=== PATIENT | male | born 1940 | race Caucasian/White ===

== ENCOUNTER 2017-08-07 03:15 | Emergency (ER) | payer MEDICARE, SELFPAY ==
[2017-08-07 03:16] VITALS: BP 157/76; PULSE 72; RESP 16; TEMP 36.4; O2SAT 97; BMI 30.4
--- NOTE | 2017-08-07 03:35 | ED.VISSUMM ---
- ER Visit Summary Date of Service: 08/07/17 Chief Complaint: Toe pain History of Present Illness: The patient is a 77 M who accidentally dropped a 10 pound plastic cutting board on his right great toe with his shoe on about 3 hours prior to arrival. No other injury. Painful to walk, but he has been able. No bleeding. He takes medicine for blood pressure but no anticoagulants or aspirin. Physical Examination: Well-appearing in no distress. Tenderness at the distal phalanx of the right great toe. No deformities. There is some ecchymosis at the tip of the toe, peroneal aspect but no subungual hematoma. All of his toenails are thickened and have some degree of separation from the bed, consistent with chronic onychomycosis. Test Results: X-ray right foot on my interpretation shows a nondisplaced tuft fx of the great toe distal phalanx, on my interpretation; radiology has not read the film yet. Emergency Department Course and Treatment: He declines analgesics. Placed in a postop shoe to use as needed. He has no PCP, he was referred to 1. Supportive care advised. Treatment Plan: As above. He has no PCP; referred to the next doctor on the no-doc list. Disposition: Discharge home Impression: Nondisplaced closed right great toe distal phalanx fracture This note was generated with [employer] dictation software. It may contain incorrect words, spelling, and punctuation that were not noted in review of the chart prior to signing ED Disposition - Plan for ED Patient: Disposition: Home or Assisted Living Chief Complaint: Lower Extremity Injury Instructions: ED Fx Toe Closed Referrals: Mayank Cullen DO [NON CLINICAL AFFILIATE] -
--- NOTE | 2017-08-07 03:45 | RAD_ITS ---
STUDY: X-RAY - RIGHT FOOT CLINICAL: Male, 77 years old. Dropped heavy object on great toe TECHNIQUE: 3 view(s) of the foot. COMPARISON: None. FINDINGS: Normal talus, calcaneus, and tarsal bones. Normal visualized subtalar, talonavicular, calcaneocuboid, tarsal and tarsometatarsal articulations. Normal metatarsi. Normal metatarsophalangeal joint of the great toe. Normal tibial and fibular sesamoid bones. Normal interphalangeal joint of the great toe. Normal phalanges of the great toe. Normal second through fifth metatarsophalangeal joints. Normal interphalangeal joints and phalanges of the lesser toes. The soft tissue structures are unremarkable. RAD/Foot min 3 Views IMPRESSION: No acute osseous injury is evident. Electronically Signed: Isidro Portillo MD at 5:19 EDT Tel , Service support ,
[2017-08-07 05:36] VITALS: BP 148/68; PULSE 79; RESP 16; O2SAT 98
== END 2017-08-07 05:36 | disposition home or self-care (01) ==
PROVIDERS: Emergency Provider Emergency Medicine
DX: S92.424A Nondisplaced fracture of distal phalanx of right great toe, initial encounter for closed fracture (principal); W22.8XXA Striking against or struck by other objects, initial encounter; Y93.9 Activity, unspecified; Y92.9 Unspecified place or not applicable; I10 Essential (primary) hypertension; Z79.82 Long term (current) use of aspirin
CPT/HCPCS: 73630; 99283

== ENCOUNTER 2017-08-08 22:26 | Emergency (ER) | payer MEDICARE, SELFPAY ==
[2017-08-08 22:27] VITALS: BP 124/68; PULSE 77; RESP 18; TEMP 36.6; O2SAT 98; BMI 27.3
--- NOTE | 2017-08-08 23:19 | ED.DCSUM_ITS ---
- ER Visit Summary Date of Service: 08/08/17 Chief Complaint: [] Injury to right toe with bleeding History of Present Illness: The patient is a 77 M seen yesterday in the emergency department diagnosed with a distal phalanx fracture of his right great toe. He accidentally dropped something on it. He noticed some bleeding from the base of the nail today and wanted to make sure it was not infected. Current severity is mild. Physical Examination: Vital signs reviewed General: Well-nourished well-developed Head: Normocephalic atraumatic Eyes: Pupils equal round and reactive to light extraocular movements intact ENT: TMs clear no hemotympanum no trauma Neck: Nontender full range of motion Cardiovascular: Regular rate rhythm no murmurs normal S1-S2 Respiratory: No distress clear to auscultation bilaterally chest nontender Abdomen: Soft nontender nondistended normal bowel sounds no masses Back: Nontender no CVA tenderness Extremities: Right great toe has some mild bruising. Mild tenderness. He said this has not changed since the injury. The base of his right great toe he has some mild bleeding under the cuticle. The toe is loose. It will likely fall off on its own. He does need to be removed. Skin: Normal color no trauma Neuro alert oriented cranial nerves II through XII intact normal strength sensation reflexes Test Results: [] Emergency Department Course and Treatment: [] Reassured no evidence of infection. He mainly came in because of that. The bleeding is very mild. We will continue to keep it bandaged. Will follow-up as an outpatient. Does not need antibiotics. This is not an open fracture. Treatment Plan: [] Disposition: [] Impression: [] Wound check great toe This note was generated with [employer] dictation software. It may contain incorrect words, spelling, and punctuation that were not noted in review of the chart prior to signing ED Disposition - Plan for ED Patient: Chief Complaint: Lower Extremity Injury Referrals: Care Physician,No Primary [Primary Care Provider] -
--- NOTE | 2017-08-08 23:19 | ED.DEP ---
ED Disposition - Plan for ED Patient: Disposition: Home or Assisted Living Chief Complaint: Lower Extremity Injury Instructions: ED Fx Toe Closed Referrals: Care Physician,No Primary [Primary Care Provider] - Mayank Cullen DO [NON CLINICAL AFFILIATE] -
[2017-08-08 23:34] VITALS: BP 122/74; PULSE 71; RESP 18; O2SAT 98
== END 2017-08-08 23:36 | disposition home or self-care (01) ==
PROVIDERS: Emergency Provider Emergency Medicine
DX: S92.424A Nondisplaced fracture of distal phalanx of right great toe, initial encounter for closed fracture (principal); W22.8XXA Striking against or struck by other objects, initial encounter; Y93.9 Activity, unspecified; Y92.9 Unspecified place or not applicable; I10 Essential (primary) hypertension; Z79.82 Long term (current) use of aspirin
CPT/HCPCS: 99282

== ENCOUNTER 2019-01-01 17:05 | Emergency (ER) | payer MEDICARE, SELFPAY ==
[2019-01-01 17:08] VITALS: BP 131/75; PULSE 57; RESP 17; TEMP 36.9; O2SAT 97; BMI 25.9
--- NOTE | 2019-01-01 17:31 | CT_ITS ---
STUDY: CT BRAIN WITHOUT CONTRAST REASON FOR EXAM: Male, 78 years old. RADIATION DOSAGE (If Supplied By Facility): CTDIvol = ( 44.99 ) mGy, DLP = ( 829.85 ) mGycm TECHNIQUE: Transaxial CT imaging of the brain was performed without administration of intravenous contrast material. Individualized dose optimization techniques were used for this CT. COMPARISON: No relevant priors. FINDINGS: Prominent frontal scalp soft tissue swelling. Normal calvarium. There is mild cerebral atrophy with widening of the extra-axial spaces and ventricular dilatation. There are areas of decreased attenuation within the white matter tracts of the supratentorial brain, consistent with microvascular disease changes. Normal basal ganglia and thalami. Normal brainstem. There is mild cerebellar atrophy. There is no intracranial hemorrhage. There are no findings of an acute ischemic infarction. Normal visualized paranasal sinuses. CT/Brain/Head without Contrast IMPRESSION: Chronic involutional changes of the brain. No acute intracranial process. Prominent frontal scalp soft tissue swelling. Electronically Signed: Car Ureña MD at 17:58 EDT Tel [phone], Service support ,
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
[2019-01-01 18:16] VITALS: BP 144/74; PULSE 58; RESP 20; O2SAT 99
== END 2019-01-01 18:22 | disposition home or self-care (01) ==
LOC: ED 17:57
PROVIDERS: Emergency Provider Emergency Medicine; Family Provider Internal Medicine; PCP Internal Medicine
DX: S50.812A Abrasion of left forearm, initial encounter (principal); S60.222A Contusion of left hand, initial encounter; V49.88XA Car occupant (driver) (passenger) injured in other specified transport accidents, initial encounter; Y93.89 Activity, other specified; Y92.410 Unspecified street and highway as the place of occurrence of the external cause
CPT/HCPCS: 70450; 99284

== ENCOUNTER 2019-01-03 19:27 | Emergency (ER) | payer MEDICARE, SELFPAY ==
[2019-01-03 19:29] VITALS: BP 142/63; PULSE 70; RESP 18; TEMP 36.3; O2SAT 98; BMI 25.8
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
--- NOTE | 2019-01-03 20:41 | ED.DEP ---
ED Disposition - Plan for ED Patient: Disposition: Home or Assisted Living Instructions: FACIAL CONTUSION, No Wakeup Referrals: Dean Rojas MD [Primary Care Provider] - As Needed Additional Instructions: Ice to your face. The bruising will eventually resolve but may take 1 to 2 weeks or even longer.
[2019-01-03 20:55] VITALS: RESP 16
== END 2019-01-03 20:55 | disposition home or self-care (01) ==
PROVIDERS: Emergency Provider Emergency Medicine; Family Provider Internal Medicine; PCP Internal Medicine
DX: S00.83XA Contusion of other part of head, initial encounter (principal); S00.12XA Contusion of left eyelid and periocular area, initial encounter; S00.11XA Contusion of right eyelid and periocular area, initial encounter; V49.88XA Car occupant (driver) (passenger) injured in other specified transport accidents, initial encounter; W22.10XA Striking against or struck by unspecified automobile airbag, initial encounter; Y93.89 Activity, other specified; Y92.9 Unspecified place or not applicable; I10 Essential (primary) hypertension; Z79.82 Long term (current) use of aspirin; Z79.899 Other long term (current) drug therapy
CPT/HCPCS: 70486; 99282

== ENCOUNTER → 2019-05-28 14:06 | Outpatient (CLI) | payer MEDICARE, SELFPAY ==
[2019-05-03 13:37] VITALS: BMI 25.3
--- NOTE | 2019-05-28 14:06 | ECHOD_ITS ---
Reason For Study: Murmur Procedure This was a 2D Doppler, Color Flow transthoracic echocardiogram. The exam was of adequate technical quality. Exam performed in department. Left Ventricle Normal LV size. Mild concentric left ventricular hypertrophy. Left ventricular systolic function is normal. The estimated ejection fraction is 65 %. No evidence for diastolic dysfunction. No regional wall motion abnormalities noted. Right Ventricle Normal RV size. Normal systolic function. Atria The left atrium is mildly enlarged. The right atrium is mildly enlarged. No doppler evidence for ASD. Mitral Valve There is moderate mitral annular calcification. Extension of the mitral annular calcification onto the base of the posterior mitral valve leaflet. Mild (1+) mitral valve insufficiency. Tricuspid Valve Normal tricuspid valve. Mild tricuspid valve insufficiency. Right ventricular systolic pressure estimated to be 28 mmHg. Aortic Valve Trisinus/trileaflet aortic valve. Mild diffuse aortic valve thickening. Mild focal aortic valve calcification. Aortic sclerosis, no stenosis. Mild (1+) aortic valve insufficiency. Pulmonic Valve The pulmonic valve is not well visualized. Great Vessels Normal sized aortic root. Pericardium/Pleural No pericardial effusion. MMode/2D Measurements & Calculations LVIDd: 4.1 cm IVSd: 1.5 cm LVOT diam: 2.0 cm LVIDs: 2.6 cm LVPWd: 1.3 cm LVOT area: 3.2 cm2 FS: 36.3 % Ao root diam: 3.6 cm LAV(MOD-bp): 59.3 ml LA A4 area: 21.4 cm2 LA dimension: 3.5 cm LAV(MOD-bp) Indexed: 31.5 ml/m2 LAV(MOD-sp2): 54.5 ml LAV(MOD-sp4): 61.5 ml RA A4 area: 21.4 cm2 Time Measurements MV dec time: 0.24 sec Doppler Measurements & Calculations MV E max pablito: 73.3 cm/sec Lat Peak E' Pablito: 12.3 cm/sec Med Peak E' Pablito: 6.6 cm/sec MV A max pablito: 73.6 cm/sec E/E' lat: 5.9 E/E' med: 11.0 MV E/A: 1.00 MV V2 max: 89.9 cm/sec Ao V2 max: 149.7 cm/sec AI max pablito: 364.4 cm/sec MV max P.2 mmHg Ao max P.1 mmHg AI max P.3 mmHg MV V2 mean: 54.0 cm/sec ALY(V,D): 3.1 cm2 AI dec slope: 157.4 cm/sec2 MV mean P.4 mmHg AI P1/2t: 678.1 msec MV V2 VTI: 24.0 cm LV V1 max: 144.9 cm/sec PA V2 max: 118.5 cm/sec TR max pablito: 248.9 cm/sec LV V1 max P.5 mmHg TR max P.8 mmHg Interpretation Summary Left ventricular systolic function is normal. The estimated ejection fraction is 65 %. Mild concentric left ventricular hypertrophy. The left atrium is mildly enlarged. The right atrium is mildly enlarged. There is moderate mitral annular calcification. Extension of the mitral annular calcification onto the base of the posterior mitral valve leaflet. Mild (1+) mitral valve insufficiency. Mild tricuspid valve insufficiency. Aortic sclerosis, no stenosis. Mild (1+) aortic valve insufficiency. Right ventricular systolic pressure estimated to be 28 mmHg. No evidence for diastolic dysfunction. Ordering Physician: Juan Hdz Referring Physician: Juan Hdz Performed By: Juanito Espinoza RCS
== END ==
PROVIDERS: Family Provider Internal Medicine; PCP Internal Medicine; Referring Provider Internal Medicine Cardiovascular Disease; Visit Provider Internal Medicine Cardiovascular Disease
DX: I25.10 Atherosclerotic heart disease of native coronary artery without angina pectoris (principal); I35.8 Other nonrheumatic aortic valve disorders; I35.1 Nonrheumatic aortic (valve) insufficiency
CPT/HCPCS: 93306

== ENCOUNTER → 2020-04-01 | Outpatient (CLI) | payer MEDICARE, SELFPAY ==
[2019-11-19 15:23] VITALS: BMI 25.2
--- NOTE | 2020-03-31 09:28 | COLBX_PTH ---
PATIENT: DL DIANE LOC: [facility] U#:[id number] AGE/SX: 80/M ROOM: RE04/01/[address]: Dr. Matthieu Lai MD : [id number] BED: DIS: 04/01/2020 SPEC #: [id number] RECD: 03/31/20 16:54 STATUS: AYAH RETong #: [id number] BRENDA: 03/31/20 09:[address]: Matthieu Lai DEPT: SURGICAL PATHOLOGY RECD BY: Sana Ramirez ENTERED: 04/01/20 07:34 SP TYPE: COLON BX OTHR DR: Dr. Anuradha Chavez DO Tissues: Colon, NOS Procedures: Surgery Specimen Level IV HEADER OPERATION: Colonoscopy PRE-OP DIAGNOSIS: Screening; polyp removal TISSUE SUBMITTED: Ascending colon polyp MICROSCOPIC DIAGNOSIS Ascending colon polyp, biopsy: Tubular adenoma. AM:olimpia 04/02/20 MICROSCOPIC DESCRIPTION Slides are reviewed. GROSS DESCRIPTION Received in fixative is one container labeled with the patient's name and designated ascending colon polyp. The specimen consists of a fragment of martinez soft tissue measuring 0.3 x 0.3 x 0.1 cm. The specimen is totally submitted in one cassette. / SJ:olimpia 04/01/20 TC:5 CPT: 74087
== END | disposition home or self-care (01) ==
LOC: LABSPEC 06:59
PROVIDERS: PCP Internal Medicine; Referring Provider Internal Medicine Gastroenterology; Visit Provider Internal Medicine Gastroenterology
DX: Z12.11 Encounter for screening for malignant neoplasm of colon (principal); D12.2 Benign neoplasm of ascending colon
CPT/HCPCS: 88305

== ENCOUNTER → 2022-07-19 | Outpatient (CLI) | payer MEDICARE, SELFPAY ==
--- NOTE | 2022-07-19 16:57 | RAD_ITS ---
EXAM: XR LEFT FOOT, 2 VIEWS CLINICAL INDICATION: PAIN IN BOTH FEET TECHNIQUE: Frontal and lateral views of the left foot. This report was created using [employer] report generation technology. 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 Prominent plantar calcaneal enthesophyte. No sclerotic or destructive changes observed. No other evidence for acute or healing fracture or malalignment. SOFT TISSUES: Unremarkable. No soft tissue swelling or gas. No radiopaque foreign body. 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 Electronically Signed: Gerson Flowers MD at 4:26 EST ,
--- NOTE | 2022-07-19 17:00 | RAD_ITS ---
EXAM: XR RIGHT FOOT, 2 VIEWS CLINICAL INDICATION: PAIN IN BOTH FEET TECHNIQUE: Frontal and lateral views of the right foot. This report was created using [employer] report generation technology. COMPARISON: None. FINDINGS: BONES/JOINTS: Moderate to severe degenerative changes at the first metatarsophalangeal joint without hallux valgus deformity. Type II accessory navicular. No acute fracture. No subluxation. Normal alignment. Preservation of the joint space. No sclerotic or destructive changes observed. Prominent plantar calcaneal spur. SOFT TISSUES: Unremarkable. No soft tissue swelling or gas. No radiopaque foreign body. RAD/Foot 2 Views IMPRESSION: Moderate to severe degenerative changes at the first metatarsophalangeal joint without hallux valgus deformity. Electronically Signed: Gerson Flowers MD at 4:24 EST ,
== END | disposition home or self-care (01) ==
LOC: RAD 16:54
PROVIDERS: PCP Internal Medicine; Visit Provider Internal Medicine
DX: M79.671 Pain in right foot (principal); M79.672 Pain in left foot
CPT/HCPCS: 73620

== ENCOUNTER 2023-09-28 16:23 | Emergency (ER) | payer MEDICARE, SELFPAY ==
[2023-09-28 16:25] VITALS: BP 126/55; PULSE 61; RESP 22; TEMP 36.5; O2SAT 100; BMI 26.4
--- NOTE | 2023-09-28 16:35 | EKG12_ITS ---
Test Reason : SOB Blood Pressure : / mmHG Vent. Rate : 063 BPM Atrial Rate : 000 BPM P-R Int : 000 ms QRS Dur : 082 ms QT Int : 398 ms P-R-T Axes : 000 -16 058 degrees QTc Int : 407 ms Normal sinus rhythm with PAC's and Sinus Arrhythmia Inferior infarct , age undetermined Abnormal ECG Confirmed by Sebastien Tipton ([id number]), video editor LAUREN YOUNG ([id number]) on 10/03/2023 9:43:21 AM Referred By: Confirmed By:Sebastien Tipton
--- NOTE | 2023-09-28 16:50 | EX.ED.DYSGE1 ---
HPI History of Present Illness Chief Complaint: Shortness of Breath Detail of Chief Complaint: Generalized fatigue Informant: patient Onset/Context/Timing Onset: Weeks Context: Gradual Onset Timing: Continuous Current Severity: Mild Maximum Severity: Mild Narrative Narrative: 83-year-old male history of CAD with a stent for the last month he has had increasing fatigue. He denies any weight loss. He denies any nausea vomiting or diarrhea. Said he just cannot seem to get his energy back. Saw his primary care physician today. He had outpatient labs on Tuesday which showed a new anemia with a hemoglobin of 11. 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 Prior similar symptoms: No Recent Illness/Hospitalization: No [facility] Medical History (Updated 09/28/23 @ 19:[address] Ron Olivera MD) Nonrheumatic aortic (valve) insufficiency Nonrheumatic aortic sclerosis SVT (supraventricular tachycardia) Mixed hyperlipidemia Essential hypertension Presence of stent in coronary artery (~2008) Atherosclerotic heart disease of [place] coronary artery without angina pectoris Home Medications ?Medication ?Instructions ?Recorded ?Last Taken ?Type aspirin 81 mg tablet,delayed 81 mg PO DAILY #30 tabs 05/03/19 Unknown Rx release nitroglycerin 0.4 mg sublingual 0.4 mg sublingual Q5-15M PRN chest 05/03/19 Unknown Rx tablet pain #25 tabs losartan 50 mg tablet 50 mg PO DAILY #90 tabs 05/08/19 Unknown Rx simvastatin 40 mg tablet 40 mg PO QHS #90 tabs 06/25/22 Unknown Rx metoprolol tartrate 25 mg tablet See Rx Instructions .Route 01/03/23 Unknown Rx .COMPLEX #30 tabs levothyroxine 50 mcg tablet 50 mcg PO DAILY 09/28/23 Unknown History Allergy/AdvReac Type Severity Reaction Status Date / Time No Known Allergies Allergy Verified 09/28/23 16:24 Family History Mother Hypertension Father Hypertension Brother Hypertension Surgical History History of left heart catheterization (LHC) (~06/28/16) Presence of coronary angioplasty implant and graft (~2008) Social History Smoking Status: Never smoker alcohol intake: never substance use type: does not use caffeine: No ROS ROS ED ROS Narrative Fatigue. Review of Systems ROS Unobtainable: Denies due to encephalopathy Constitutional Constitutional ED: Denies chills or fever(s) Eyes Eyes: Denies blurry vision ENT ENT ED: Denies ear pain Cardiovascular Cardiovascular: Denies chest pain Respiratory/Chest Respiratory/Chest: Denies cough or dyspnea Gastrointestinal Gastrointestinal: Denies abdominal pain Genitourinary Genitourinary ED: Denies dysuria Musculoskeletal Musculoskeletal: Denies arthralgias Integumentary Denies abscess Neurologic Neurologic: Denies headache(s) Psychiatric Psychiatric: Denies anxiety or depression Endocrine Endocrinology: Denies cold intolerance Hematologic/Lymphatic Hematologic/Lymphatic: Reports easy bleeding and easy bruising Allergic/Immunologic Allergic/Immunologic ED: Denies mouth swelling, tongue swelling or urticaria EXAM Physical Exam Narrative Exam Narrative: 19-year-old male vital signs stable afebrile. Pulse ox 9% on room air no hypoxia. H EENT exam unremarkable moist extremities. Neck nontender. Lungs clear to auscultation bilateral. Heart regular rhythm 4-6 systolic ejection murmur. Abdomen soft nontender. Normal bowel sounds. Moving all 4 extremities. Where he had his recent blood work done on his left antecubital area is extensive bruising. Normal nurse assessor strength. Normal dorsi plantarflexion. No edema. Neurologically is awake and alert no focal motor deficits. Const Vital Signs: 09/28/23 16:25 09/28/23 16:35 09/28/23 18:24 Temperature 97.7 F L Temperature Source Temporal Pulse Rate 61 Respiratory Rate 22 H Respiratory Effort Normal Non-Labored Short of Breath Blood Pressure 126/55 H Blood Pressure Mean 78 Pulse Ox 100 Oxygen Delivery Method Room Air Room Air 09/28/23 18:24 Temperature Temperature Source Pulse Rate 57 L Respiratory Rate 28 H Respiratory Effort Blood Pressure 142/65 H Blood Pressure Mean 90 Pulse Ox 95 Oxygen Delivery Method Room Air Positive well nourished and well developed; Negative for obese, cachectic, contractures or unkempt General Appearance ED: well developed and NAD; Negative for unkempt, cachectic, contractures, cyanotic, diaphoretic or pallor Nutritional Appearance: Negative for cachectic or obese HEENT Reports moist mucous membranes; Denies dry mucous membranes Negative for trauma or tenderness Mouth ED: No dry mucous membranes Mouth: No dry mucous membranes Eyes PERRL and EOMs intact bilaterally General Eye ED: Negative for pale conjunctiva, scleral icterus or other Neck no lymphadenopathy, supple and no JVD General: Negative for tenderness Lymph Lymphatic: Negative for other Chest Wall inspection of chest normal and palpation of chest normal Chest: Negative for other Resp normal respiratory effort and clear to auscultation bilaterally Effort and Inspection: Negative for retractions Auscultation: Negative for rales, rhonchi, wheezes or diminished lung sounds Cardio regular rate, regular rhythm, S1 normal heart sound and S2 normal heart sound; Negative for no murmurs Palpation: Negative for palpable S3 Rate: other Other Details: 4-6 systolic ejection murmur. ; Negative for bradycardia GI normal to inspection, nondistended, normoactive bowel sounds, non-tender, non-distended and no masses Inspection: Negative for abdominal distention Auscultation: normoactive bowel sounds Palpation: soft; Negative for tender or guarding Back/Spine no CVA tenderness General Back: Negative for CVA tenderness Cervical Spine: Negative for cervical spine tenderness Thoracic Spine / Upper Back: Negative for thoracic spinal tenderness Lumbar Spine / Lower Back: Negative for lumbar spinal tenderness Extremity normal to inspection Extremity Narrative: Bruising left antecubital forearm. Recent blood draw. General Extremety ED: Negative for edema or tenderness General Extremity: Negative for edema Neuro oriented x3 and CN's II-XII intact bilaterally Sensorium / Orientation: alert; Negative for orientation impaired, lethargic or stuporous Motor Exam: strength 5/5 throughout; Negative for general weakness or strength abnormal Psych mental status grossly normal Appearance: Negative for unkempt Attitude: No agitated Mood & Affect: Negative for depressed, anxious or tearful Skin no rashes or lesions noted and no wounds General Skin Exam: Negative for jaundice or pallor Lesions: No lesion noted Rashes: No rashes noted Trauma: Negative for abrasion MDM MDM MDM Narrative Medical decision making narrative: 83-year-old male month-long history of fatigue. 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 Screening labs will be obtained. I have already spoken to [facility] transfer line at [facility] where the patient would like to be treated if possible. They are seeing if they have a bed. Currently the patient is stable. Normal vital signs. Repeat exam patient doing well at 7:40 PM. 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 And that was his hospital of choice. History & Record Review Discussion w/independent historian: Patient Lab Data Attestation: I reviewed the patient's lab results. Lab results narrative: CBC shows a white count 8.2. H&H 9.4 and 20.7. This is a new anemia. Platelet count of 19,000 this is also new. Blast like cells. Will need pathology review. PT/INR of 18 and 1. PTT at 35. Electrolytes show sodium 135. Gap 7. BUN of 29 creatinine 1.28. Liver enzymes negative. Labs: Laboratory Results - last 24 hr 09/28/23 09/28/23 16:50 16:55 WBC 8.2 RBC 2.95 L Hgb 9.4 L Hct 28.7 L MCV 97.3 H MCH 31.9 MCHC 32.8 RDW Std Deviation 61.1 H RDW Coeff of Mayi 17.5 H Plt Count 19 L* MPV 11.8 Immature Gran % (Auto) 0.100 Neut % (Auto) 3.0 L Lymph % (Auto) 35.8 Hubbard % (Auto) 60.0 H Eos % (Auto) 0.4 Baso % (Auto) 0.7 Absolute Neuts (auto) 0.2 L Absolute Lymphs (auto) 2.95 Nucleated RBC % 0.4 Differential Comment SCANNED Diff Path Review May foll PT 18.4 H INR 1.5 APTT 35.3 Sodium 135 L Potassium 4.7 Chloride 103 Carbon Dioxide 25.0 Anion Gap 7 BUN 29 H Creatinine 1.28 Estim Creat Clear Calc 41.60 Est GFR (MDRD) Af Amer 69 Est GFR (MDRD) Non-Af 57 L BUN/Creatinine Ratio 22.7 H Glucose 96 Calcium 9.6 Total Bilirubin 0.70 AST 52 H ALT 23 Alkaline Phosphatase 75 Total Protein 6.6 Albumin 3.0 L Globulin 3.6 Albumin/Globulin Ratio 0.8 L Radiography Chest X-Ray - ED: 1 View, Read by ED Physician, Read by Radiologist, Normal, Heart, Lungs, Mediastinum, Bony Structures, No Acute Disease and Chronic Changes Diagnostic Testing: Clinical Impression(s) from Imaging Studies Chest X-Ray 09/28/23 16:55 IMPRESSION: No radiographic evidence of acute cardiopulmonary disease. Aortic atherosclerosis. Electronically Signed: Charlie Christianson MD at 17:07 EDT , Chest x-ray, portable, single view interpreted by myself the radiologist shows no acute abnormality. Chronic changes. Normal cardiac silhouette. No infiltrate. No effusions Rhythm Strip Rhythm Strip: Sinus Rhythm Rate: 63 Ectopy: None EKG Initial EKG: Attestation: I personally reviewed and interpreted this EKG as follows: Interpretation: Sinus Rhythm and No Acute Injury Pattern Comments: Normal sinus rhythm rate of 63 no acute signs of OH or ischemia. Discharge Plan Triage Chief Complaint: Shortness of Breath ED Provider: Ron Olivera Dx/Rx/DC Orders Clinical Impression: Fatigue, Acute anemia, Thrombocytopenia, Acute myelogenous leukemia, History of coronary artery disease Prescriptions: No Action nitroglycerin 0.4 mg tablet, sublingual 0.4 mg SUBLINGUAL Q5-15M PRN (Reason: chest pain) Qty: 25 1RF aspirin 81 mg tablet,delayed release (DR/EC) 81 mg PO DAILY Qty: 30 0RF levothyroxine 50 mcg tablet 50 mcg PO DAILY losartan 50 mg tablet 50 mg PO DAILY Qty: 90 3RF simvastatin 40 mg tablet 40 mg PO QHS Qty: 90 3RF metoprolol tartrate 25 mg tablet See Rx Instructions .ROUTE .COMPLEX Qty: 30 0RF Dose Instruction: Take 1/2 (one-half) tablet by mouth twice daily Rx Instructions: Take 1/2 (one-half) tablet by mouth twice daily Primary Care Provider: Anuradha Chaevz Referrals: Anuradha Chavez DO [Primary Care Provider] - Print Language: Uzbek Disposition Disposition: Acute Care Hospital
--- NOTE | 2023-09-28 16:55 | RAD_ITS ---
INDICATION: chest pain EXAMINATION/TECHNIQUE: X-RAY - XR Chest 1 View COMPARISON: None. FINDINGS: LINES/DEVICES: None. LUNGS: No consolidation, edema or effusion. No pneumothorax. MEDIASTINUM AND CARDIOVASCULAR STRUCTURES: Cardiac silhouette not enlarged. Aortic atherosclerosis. BONES AND SOFT TISSUES: Unremarkable. RAD/Chest 1 View (Portable) IMPRESSION: No radiographic evidence of acute cardiopulmonary disease. Aortic atherosclerosis. Electronically Signed: Charlie Christianson MD at 17:07 EDT ,
[2023-09-28 17:04] LABS: Absolute Lymphocyte Count 2.95 X10^3/uL (0.83-4.51); Absolute Neutrophil Count 0.2 X10^3/uL (2.0-7.7); Basophil# 0.06 X10^3/uL; Basophil% 0.7 % (0-1); Eosinophil# 0.03 X10^3/uL; Eosinophils% 0.4 % (0-5); Hematocrit 28.7 % (40-54); Hemoglobin 9.4 g/dL (13.0-16.5); Lymphocyte # 2.95 X10^3/ul (0.83-4.51); Lymphocyte % 35.8 % (19-41); Mean Corp Hgb Conc 32.8 g/dL (32-36); Mean Corpuscular Hgb 31.9 pg (27.0-32.0); Mean Corpuscular Volume 97.3 fL (80-94); Mean Platelet Vol. 11.8 fl (6.2-12.0); Monocyte# 4.94 X10^3/uL; NRBC Flagged by Analyzer 0.4 % (0-5); Neutrophil # 0.24 X10^3/uL (2.7-7.7); POSITIVE COUNT YES; POSITIVE DIFFERENTIAL YES; POSITIVE MORPHOLOGY YES; RBC Distribution Width CV 17.5 % (11.6-14.6); RBC Distribution Width SD 61.1 fl (35.1-43.9); Red Blood Count 2.95 M/mm3 (4.6-6.2); White Blood Count 8.2 K/mm3 (4.4-11.0)
[2023-09-28 17:27] LABS: International Normalized Ratio 1.5; Prothrombin Time (Protime)PT. 18.4 SECONDS (11.7-14.9)
[2023-09-28 17:29] LABS: Partial Thromboplast Time 35.3 Seconds (24.1-36.2)
[2023-09-28 17:38] LABS: ALB/GLOB Ratio 0.8 RATIO (0.9-2.4); AST(SGOT) 52 U/L (15-37); Alanine Aminotransfer ALT/SGPT 23 U/L (16-61); Alkaline Phosphatase 75 U/L (45-117); Anion Gap 7 (5-15); BUN 29 mg/dL (7-18); BUN/Creat Ratio 22.7 RATIO (10-20); Calcium,Total 9.6 mg/dL (8.5-10.1); Chloride 103 mmol/L (98-107); Creatinine, Serum 1.28 mg/dL (0.70-1.30); EST Glomerular Filtration Rate 57 mL/min (>60); Est Glom Filt Rate - Afr Amer 69 mL/min (>60); Globulin 3.6 g/dL (2.2-4.2); Glucose 96 mg/dL (74-106); Potassium 4.7 mmol/L (3.5-5.1); Protein, Total 6.6 g/dL (6.4-8.2); Sodium Level 135 mmol/L (136-145)
[2023-09-28 17:46] LABS: Differential Indicated SCAN CRITERIA MET
[2023-09-28 17:47] LABS: Platelet Count 19 K/mm3 (150-450)
[2023-09-28 17:53] LABS: Differential Comment SCANNED
[2023-09-28 18:24] VITALS: BP 142/65; PULSE 57; RESP 28; O2SAT 95
[2023-09-28 20:20] VITALS: BP 142/65; PULSE 57; RESP 28; TEMP 36.5; O2SAT 95
[2023-09-30 14:38] LABS: Pathologist Review Reviewed
== END 2023-09-28 20:49 | disposition short-term general hospital (02) ==
PROVIDERS: Emergency Provider Emergency Medicine; PCP Internal Medicine; Visit Provider Emergency Medicine
DX: C92.00 Acute myeloblastic leukemia, not having achieved remission (principal); D69.6 Thrombocytopenia, unspecified; I25.10 Atherosclerotic heart disease of native coronary artery without angina pectoris; I10 Essential (primary) hypertension; E78.2 Mixed hyperlipidemia; Z95.5 Presence of coronary angioplasty implant and graft; Z79.82 Long term (current) use of aspirin; Z79.899 Other long term (current) drug therapy
CPT/HCPCS: 71045; 80053; 85025; 85610; 85730; 93005; 99285

== ENCOUNTER 2023-10-14 09:15 | Outpatient (CLI) | payer MEDICARE, SELFPAY ==
[2023-10-14 09:45] VITALS: BP 121/52; PULSE 70; RESP 16; TEMP 36.4; O2SAT 97; BMI 26.9
[2023-10-14] MEDS: 0.9% Normal Saline (500mL Bag) 500 ML 15 ML IV (09:51)
[2023-10-14] MEDS: 0.9% NaCl VAD Flush IV (09:51)
[2023-10-14 11:06] VITALS: BP 133/50; PULSE 66; RESP 16; TEMP 36.2; O2SAT 98
== END 2023-10-14 23:59 | disposition home or self-care (01) ==
LOC: MEDOUTP 09:17
PROVIDERS: PCP Internal Medicine; Referring Provider Internal Medicine Hematology & Oncology; Visit Provider Internal Medicine Hematology & Oncology
DX: C95.00 Acute leukemia of unspecified cell type not having achieved remission (principal)
CPT/HCPCS: 96360; 36430; 86900; 86901; 86965; J7040; P9035; A4216

== ENCOUNTER 2023-11-04 07:57 | Outpatient (CLI) | payer MEDICARE, SELFPAY ==
[2023-11-04 08:39] VITALS: BP 112/48; PULSE 84; RESP 16; TEMP 37.7; O2SAT 97; BMI 25.8
[2023-11-04] MEDS: 0.9% Normal Saline (500mL Bag) 500 ML 15 ML IV (08:48)
[2023-11-04] MEDS: 0.9% NaCl Peripheral Flush Adult/Peds IV (08:48)
[2023-11-04 09:28] VITALS: BP 128/59; PULSE 63; RESP 16; TEMP 37.2; O2SAT 97
[2023-11-04 09:44] VITALS: BP 139/63; PULSE 97; RESP 16; TEMP 36.6; O2SAT 100
[2023-11-04 10:23] VITALS: BP 142/62; PULSE 89; RESP 16; TEMP 36.8; O2SAT 96
[2023-11-04 11:19] VITALS: BP 140/62; PULSE 73; RESP 16; TEMP 37.2; O2SAT 97
[2023-11-04 12:25] VITALS: BP 162/71; PULSE 85; RESP 16; TEMP 37.4; O2SAT 98
== END 2023-11-04 23:59 | disposition home or self-care (01) ==
LOC: MEDOUTP 07:57
PROVIDERS: PCP Internal Medicine; Referring Provider Internal Medicine Hematology & Oncology; Visit Provider Internal Medicine Hematology & Oncology
DX: C92.00 Acute myeloblastic leukemia, not having achieved remission (principal)
CPT/HCPCS: 36430; 86850; 86900; 86901; 86920; 86922; 86965; J7040; P9016; P9035; A4216

== ENCOUNTER 2023-11-08 09:49 | Outpatient (CLI) | payer MEDICARE, SELFPAY ==
[2023-11-08] MEDS: 0.9% NaCl Peripheral Flush Adult/Peds IV (10:14)
[2023-11-08] MEDS: 0.9% Normal Saline (500mL Bag) 500 ML 15 ML IV (10:14)
[2023-11-08 10:19] VITALS: BP 122/55; PULSE 77; RESP 16; TEMP 36.3; O2SAT 94; BMI 26.6
[2023-11-08 10:48] VITALS: BP 126/51; PULSE 83; RESP 14; TEMP 36.2; O2SAT 94
[2023-11-08 11:06] VITALS: BP 118/64; PULSE 81; RESP 14; TEMP 36.2; O2SAT 94
[2023-11-08 11:22] VITALS: BP 142/61; PULSE 93; RESP 16; TEMP 36.3
[2023-11-08 12:37] VITALS: BP 140/61; PULSE 93; RESP 16; TEMP 36.5
[2023-11-08 14:10] VITALS: BP 153/72; PULSE 84; RESP 16; TEMP 36.6; O2SAT 95
--- NOTE | 2023-11-08 14:15 | NURSING ---
Patient completed 1st unit of PRBC and asked to use the bathroom. Patient transferred via WC but noted to have increased SOB and mild wheezing when done. Assisted patient back to chair in room and noted to have difficulty with catching his breath. Patient states that he does not use oxygen at home but this nurse offered oxygen to help recover patient states that would be good Patient placed on 2L oxygen via NC. Patient is due to start next unit of blood. This nurse spoke with Dr Salcido's nurse and advised of patient's current status. With return call from Dr Salcido's office was advised to take patient to the Er. Patient's IV saline locked and transported to Er via W/c with 2L of oxygen via NC. Report called to Gracy in Er. Steven Munoz
== END 2023-11-08 23:59 | disposition home or self-care (01) ==
LOC: MEDOUTP 09:49
PROVIDERS: PCP Internal Medicine; Referring Provider Internal Medicine Hematology & Oncology; Visit Provider Internal Medicine Hematology & Oncology
DX: C95.00 Acute leukemia of unspecified cell type not having achieved remission (principal)
CPT/HCPCS: 96360; 96361; 36430; 86644; 86850; 86900; 86901; 86920; 86922; 86965; J7040; P9035; P9040; A4216

== ENCOUNTER 2023-11-08 14:01 | Inpatient (IN) | payer MEDICARE, SELFPAY ==
[2023-11-08] VITALS (15 sets, daily range): BP systolic 117–171; BP diastolic 51–92; PULSE 81–90; RESP 16–26; TEMP 36.1–37.5; O2SAT 95–100; BMI 28.3
--- NOTE | 2023-11-08 15:20 | EKG12_ITS ---
Test Reason : SOB Blood Pressure : / mmHG Vent. Rate : 092 BPM Atrial Rate : 000 BPM P-R Int : 000 ms QRS Dur : 078 ms QT Int : 348 ms P-R-T Axes : 000 -08 053 degrees QTc Int : 430 ms Atrial fibrillation with premature ventricular or aberrantly conducted complexes Septal infarct , age undetermined Abnormal ECG Confirmed by Sebastien Tipton ([id number]), news assignment editor MARTINEZ VÁZQUEZ ([id number]) on 11/09/2023 9:20:53 AM Referred By: Confirmed By:Sebastien Tipton
--- NOTE | 2023-11-08 15:30 | RAD_ITS ---
STUDY: X-RAY CHEST REASON FOR EXAM: Male, 83 years old. Dyspnea, hypoxia TECHNIQUE: PA and lateral COMPARISON: September 28, 2023 FINDINGS: Lungs are hyperinflated however there is diffuse bilateral perihilar interstitial infiltrate or pulmonary edema with bilateral pleural effusions larger on the left and left lower lobe consolidation Heart is enlarged. Normal mediastinum and leticia. Normal visualized pulmonary arteries. Mildly calcified aortic arch and descending thoracic aorta. Dorsal spine demonstrates mild degenerative change. Normal visualized ribs, clavicles, and shoulders. There is no demonstrated abnormality of the visualized soft tissue structures of the upper abdomen. RAD/Chest PA and Lateral IMPRESSION: COPD with probable superimposed congestive failure and bilateral effusions with consolidation of left lower lobe. Cannot definitively exclude coexisting pneumonia. Electronically Signed: Rubio Jeronimo MD at 16:50 EDT ,
[2023-11-08 16:05] LABS: ALB/GLOB Ratio 0.6 RATIO (0.9-2.4); AST(SGOT) 34 U/L (15-37); Alanine Aminotransfer ALT/SGPT 15 U/L (16-61); Albumin, Serum 1.9 g/dL (3.2-5.0); Alkaline Phosphatase 90 U/L (45-117); Anion Gap 5 (5-15); BNP,B-Type NATRIURETIC PEPTIDE 685.3 pg/mL (0-100); BUN 21 mg/dL (7-18); BUN/Creat Ratio 23.3 RATIO (10-20); Chloride 102 mmol/L (98-107); EST Glomerular Filtration Rate 86 mL/min (>60); Est Glom Filt Rate - Afr Amer 103 mL/min (>60); Globulin 3.4 g/dL (2.2-4.2); Glucose 123 mg/dL (74-106); Potassium 3.4 mmol/L (3.5-5.1); Protein, Total 5.3 g/dL (6.4-8.2); Sodium Level 134 mmol/L (136-145); Troponin-I HS 22 pg/mL (3.0-78.0)
[2023-11-08 16:05] LABS: Hematocrit 22.5 % (40-54); Hemoglobin 7.7 g/dL (13.0-16.5); Mean Corp Hgb Conc 34.2 g/dL (32-36); Mean Corpuscular Volume 87.5 fL (80-94); Mean Platelet Vol. 7.5 fl (6.2-12.0); POSITIVE COUNT YES; POSITIVE DIFFERENTIAL YES; POSITIVE MORPHOLOGY YES; Platelet Count 7 K/mm3 (150-450); RBC Distribution Width CV 13.8 % (11.6-14.6); RBC Distribution Width SD 43.8 fl (35.1-43.9); Red Blood Count 2.57 M/mm3 (4.6-6.2); White Blood Count 0.1 K/mm3 (4.4-11.0)
[2023-11-08 16:08] LABS: Lactic Acid 1.6 mmol/L (0.4-1.9)
--- NOTE | 2023-11-08 16:18 | ED.RN ---
CRITICAL LABS REPORTED TO DR. CHDAWICK
--- NOTE | 2023-11-08 16:43 | ED.VIS.DYS ---
HPI History of Present Illness Chief Complaint: Shortness of Breath Detail of Chief Complaint: Acute shortness of breath during blood transfusion Informant: patient, family and PCP Onset/Context/Timing Onset: Hours Context: sudden Timing: Continuous Quality: Positive for Dyspnea on exertion and Wheezing Current Severity: Mild Maximum Severity: Moderate Worsened by: - (Blood transfusion reaction) Associated Symptoms cough; Negative for rhinorrhea, post nasal drip, ear pain, fever, sore throat, subjective, chills or sweats Chest Pain: Positive for None Narrative Narrative: Patient is a 83-year-old male with history of leukemia. He underwent bone marrow transplant. He was at the infusion center receiving platelets and blood. He developed shortness of breath. He was sent to the emergency department. He normally is able to walk without any difficulty. He has conversational dyspnea. He was hypoxic. He was placed on oxygen. He has never been on oxygen before. He denies fever, chills night sweats. He denies headache, visual, ocular auditory symptoms. Eyes vidal ears decreased hearing. Has trouble with speech or swallowing. He denies chest discomfort. He has a slight cough. He denies orthopnea. He denies abdominal pain, nausea, vomiting or diarrhea. He denies dysuria, frequency, urgency or hematuria. He has not urinated since this occurred and has no symptoms prior. PE Risk Factors: Positive for Cancer and Recent surgery; Negative for OCP + Smoking + > 35, Prior DVT or PE, Recent immobilization or Recent travel Prior similar symptoms: No Recent Illness/Hospitalization: Yes [facility] Medical History (Updated 11/08/23 @ 16:[address] Karan Verde MD) Nonrheumatic aortic (valve) insufficiency Nonrheumatic aortic sclerosis SVT (supraventricular tachycardia) Mixed hyperlipidemia Essential hypertension Presence of stent in coronary artery (~2008) Atherosclerotic heart disease of [place] coronary artery without angina pectoris Home Medications ?Medication ?Instructions ?Recorded ?Last Taken ?Type nitroglycerin 0.4 mg sublingual 0.4 mg sublingual Q5-15M PRN chest 05/03/19 Unknown Rx tablet pain #25 tabs losartan 50 mg tablet 50 mg PO DAILY #90 tabs 05/08/19 Unknown Rx simvastatin 40 mg tablet 40 mg PO QHS #90 tabs 06/25/22 Unknown Rx metoprolol tartrate 25 mg tablet See Rx Instructions .Route 01/03/23 Unknown Rx .COMPLEX #30 tabs levothyroxine 50 mcg tablet 50 mcg PO DAILY 09/28/23 Unknown History acyclovir 400 mg tablet 400 mg PO BID 11/08/23 Unknown History allopurinol 300 mg tablet 300 mg PO DAILY 11/08/23 Unknown History clotrimazole 10 mg pia 10 mg PO 5X/DAY 11/08/23 Unknown History ivosidenib 250 mg tablet (Tibsovo) PO 11/08/23 Unknown History Allergy/AdvReac Type Severity Reaction Status Date / Time No Known Allergies Allergy Verified 11/08/23 14:05 Family History Mother Hypertension Father Hypertension Brother Hypertension Surgical History History of left heart catheterization (LHC) (~06/28/16) Presence of coronary angioplasty implant and graft (~2008) Social History Smoking Status: Former smoker alcohol intake: never substance use type: does not use caffeine: No ROS ROS ED Constitutional Constitutional ED: Denies chills, fever(s) or sweats Eyes Eyes: Denies blurry vision, change in vision or diplopia ENT ENT ED: Denies ear pain, rhinorrhea or sore throat Cardiovascular Cardiovascular: Denies chest pain, orthopnea, palpitations, paroxysmal nocturnal dyspnea or racing heartbeat Respiratory/Chest Respiratory/Chest: Reports cough, dyspnea and dyspnea on exertion; Denies orthopnea, paroxysmal nocturnal dyspnea or sputum Gastrointestinal Gastrointestinal: Denies abdominal pain, melena, nausea or vomiting Genitourinary Genitourinary ED: Denies dysuria, hematuria or urinary frequency Musculoskeletal Musculoskeletal: Denies arthralgias, myalgias or neck pain Integumentary Denies rash Neurologic Neurologic: Reports weakness; Denies headache(s) Psychiatric Psychiatric: Reports anxiety Endocrine Endocrinology: Denies cold intolerance or heat intolerance Hematologic/Lymphatic Hematologic/Lymphatic: Denies easy bleeding or easy bruising EXAM Physical Exam Const Vital Signs: 11/08/23 14:02 11/08/23 14:19 11/08/23 14:22 Temperature 97 F L 97 F L Temperature Source Temporal Temporal Pulse Rate 85 85 Respiratory Rate 17 17 Respiratory Effort Short of Breath Labored Respiratory Pattern Tachypnea Blood Pressure 156/85 H 156/85 H Blood Pressure Mean 108 108 Pulse Ox 100 100 Oxygen Delivery Method Nasal Cannula Nasal Cannula Room Air Oxygen Flow Rate (L/min) 2 2 11/08/23 15:19 11/08/23 16:00 Temperature 98.9 F 98.5 F Temperature Source Temporal Temporal Pulse Rate 87 84 Respiratory Rate 18 26 H Respiratory Effort Respiratory Pattern Blood Pressure 144/70 H 131/78 H Blood Pressure Mean 94 95 Pulse Ox 100 97 Oxygen Delivery Method Nasal Cannula Nasal Cannula Oxygen Flow Rate (L/min) 2 2 Positive well nourished and well developed Constitutional Narrative: Patient has conversational dyspnea. He was hypoxic on room air. General Appearance ED: well developed and pallor HEENT Reports dry mucous membranes HEENT Narrative: Head is atraumatic normocephalic. Ears normal. Nares patent. Posterior pharynx remarkable for thrush. Mouth ED: Yes dry mucous membranes Mouth: dry mucous membranes Eyes PERRL and EOMs intact bilaterally General Eye ED: Yes pale conjunctiva; Negative for scleral icterus Neck no lymphadenopathy, supple, no meningeal signs and no JVD Resp No normal respiratory effort and No clear to auscultation bilaterally Auscultation: rales bilateral mid and lower Cardio regular rate, regular rhythm, S1 normal heart sound, S2 normal heart sound and no murmurs GI non-tender, non-distended and no masses Auscultation: normoactive bowel sounds Palpation: soft Back/Spine no CVA tenderness Extremity normal to inspection Neuro oriented x3 and CN's II-XII intact bilaterally [place] Coma Scale: document GCS findings Spontaneous Obeys Commands Oriented 15 Sensorium / Orientation: alert Psych mental status grossly normal Skin no wounds and No skin turgor normal General Skin Exam: pallor; Negative for jaundice MDM MDM MDM Narrative Medical decision making narrative: Differential diagnosis would include blood transfusion reaction, pulmonary embolus, congestive heart failure. History & Record Review Discussion w/independent historian: Patient and Family Additional record(s) reviewed:: Other (Dr. Renee called over and spoke to the charge nurse.) Lab Data Attestation: I reviewed the patient's lab results. Lab results narrative: Patient has pancytopenia with a white count of 100 with an absolute neutrophil count that is in the single digits. H&H 7.7 and 22.5. Platelet count is 7000. Comprehensive metabolic panel reveals mild hyponatremia and hypokalemia. BUN to creatinine ratio is elevated. BUN is 21 with a creatinine 0.9. BNP is elevated at 685.3. Labs: Laboratory Results - last 24 hr 11/08/23 11/08/23 11/08/23 15:14 15:14 15:54 WBC Cancelled 0.1 L* Corrected WBC Cancelled RBC Cancelled 2.57 L Hgb Cancelled 7.7 L Hct Cancelled 22.5 L MCV Cancelled 87.5 MCH Cancelled 30.0 MCHC Cancelled 34.2 RDW Std Deviation Cancelled 43.8 RDW Coeff of Mayi Cancelled 13.8 Plt Count Cancelled 7 L* MPV Cancelled 7.5 Immature Gran % (Auto) Cancelled 10.000 H Neut % (Auto) Cancelled 10.0 L Lymph % (Auto) Cancelled 70.0 H [place] % (Auto) Cancelled 10.0 Eos % (Auto) Cancelled 0.0 Baso % (Auto) Cancelled 0.0 Absolute Neuts (auto) Cancelled 0.0 L Absolute Lymphs (auto) Cancelled 0.07 L Total Counted Cancelled Neutrophils % (Manual) Cancelled Band Neutrophils % Cancelled Lymphocytes % (Manual) Cancelled Monocytes % (Manual) Cancelled Eosinophils % (Manual) Cancelled Basophils % (Manual) Cancelled Metamyelocytes % Cancelled Myelocytes % Cancelled Promyelocytes % Cancelled Blast Cells % Cancelled Plasma Cell % (Manual) Cancelled Other Cells % Cancelled Nucleated RBC % Cancelled Nucleated RBCs/100 WBC Cancelled Differential Comment Cancelled Diff Path Review Cancelled May foll Hypersegmented Neuts Cancelled Atypical Lymphocytes Cancelled Reactive Lymphocytes Cancelled Smudge Cells Cancelled Toxic Granulation Cancelled Toxic Vacuolation Cancelled Dohle Bodies Cancelled [place] Rods Cancelled Platelet Estimate Cancelled Plt Morphology Comment Cancelled RBC Morphology Cancelled Cancelled Polychromasia Cancelled Hypochromasia Cancelled Basophilic Stippling Cancelled Anisocytosis Cancelled Microcytosis Cancelled Macrocytosis Cancelled Spherocytes Cancelled Sickle Cells Cancelled Target Cells Cancelled Tear Drop Cells Cancelled Ovalocytes Cancelled Stomatocytes Cancelled [place] Bodies Cancelled [place] Cells Cancelled Bite Cells Cancelled Crenated Cell Cancelled Acanthocytes (Spur) Cancelled Rouleaux Cancelled Schistocytes Cancelled Sodium 134 L Potassium 3.4 L Chloride 102 Carbon Dioxide 27.0 Anion Gap 5 BUN 21 H Creatinine 0.90 Est GFR (MDRD) Af Amer 103 Est GFR (MDRD) Non-Af 86 BUN/Creatinine Ratio 23.3 H Glucose 123 H Lactic Acid 1.6 Calcium 8.0 L Total Bilirubin 1.60 H AST 34 ALT 15 L Alkaline Phosphatase 90 Troponin I High Sens 22 B-Natriuretic Peptide 685.3 H Total Protein 5.3 L Albumin 1.9 L Globulin 3.4 Albumin/Globulin Ratio 0.6 L Radiography Diagnostic Testing: Clinical Impression(s) from Imaging Studies Chest X-Ray 11/08/23 15:30 IMPRESSION: COPD with probable superimposed congestive failure and bilateral effusions with consolidation of left lower lobe. Cannot definitively exclude coexisting pneumonia. Electronically Signed: Rubio Jeronimo MD at 16:50 EDT , Management Discussion w/another healthcare provider: Hospitalist and Petroleum Inspector Supervisor (Dr. Micky Santos on-call for Dr. Juan Salcido was made aware patient. At this time does not recommend any antibiotic for prophylaxis for his neutropenia and would not administer any platelets or do anything for his thrombocytopenia at this time.) Discharge Plan Triage Chief Complaint: Shortness of Breath ED Provider: Karan Verde Dx/Rx/DC Orders Clinical Impression: Blood transfusion reaction, Essential hypertension, Mixed hyperlipidemia, Acute hypoxemic respiratory failure, Neutropenia, Symptomatic anemia, Thrombocytopenia, Candidiasis of mouth Prescriptions: No Action nitroglycerin 0.4 mg tablet, sublingual 0.4 mg SUBLINGUAL Q5-15M PRN (Reason: chest pain) Qty: 25 1RF levothyroxine 50 mcg tablet 50 mcg PO DAILY clotrimazole 10 mg pia 10 mg PO 5X/DAY acyclovir 400 mg tablet 400 mg PO BID allopurinol 300 mg tablet 300 mg PO DAILY Tibsovo 250 mg tablet PO losartan 50 mg tablet 50 mg PO DAILY Qty: 90 3RF simvastatin 40 mg tablet 40 mg PO QHS Qty: 90 3RF metoprolol tartrate 25 mg tablet See Rx Instructions .ROUTE .COMPLEX Qty: 30 0RF Dose Instruction: Take 1/2 (one-half) tablet by mouth twice daily Rx Instructions: Take 1/2 (one-half) tablet by mouth twice daily Primary Care Provider: Anuradha Chavez Referrals: Anuradha Chavez DO [Primary Care Provider] - Print Language: Arabic
[2023-11-08 16:50] LABS: Differential Indicated SCAN CRITERIA MET; Neutrophil # 0.01 X10^3/uL (2.7-7.7)
[2023-11-08 16:51] LABS: Absolute Lymphocyte Count 0.07 X10^3/uL (0.83-4.51); Lymphocyte # 0.07 X10^3/ul (0.83-4.51)
--- NOTE | 2023-11-08 18:11 | CASEMGMT ---
Care Management Face to Face in the ED with patient and his sister in law Arabella (who was present during the last part of the visit) for initial transition planning/care coordination assessment.? This senior writer introduced self and role at [facility]. Patient lying in bed, alert and oriented but tired. Much of the time, patient spoke with his eyes closed and stated he was tired but agreeable to visit and support. Patient willing to participate in assessment and is able to answer all questions appropriately.? Care providers, pharmacy, and demographics verified. Admitting Diagnosis: SOB Other diagnosis history: Leukemia, HTN, Mixed hyperlipidemia, History of heart disease. Refer to H&P for further details. PCP: Dr. Anuradha Chavez Specialists: Dr. Salcido (oncology) and Dr. Barton, both through the [facility]: [facility] Insurance: [employer] Prescription Benefit:?Not discussed Living Will/HPOA: Patient not sure however has a family ip technology transactions attorney who will have knowledge if patient has a Living Will or Healthcare Power of [employer]. Patient's sister in law Bell will speak with patient's sons and will try and get a copy if there is anything currently in place. During the visit, the hospitalist came in and asked patient what his end of life preferences are and patient verbalized a preference of a DNR/declined a desire to be intubated as well. LNOK: Sons Tahir Santiago of [place] and Krish Santiago of [place]. [id number] Arabella Juares ([phone]) lives in [place]. Living Arrangements: Patient resides alone and is . Patient reported having two steps to get into his home and 14 stairs to climb up and down to get to his bedroom where he sleeps. He confirmed he has a handrail to hold on to for support. Fall prevention education was reviewed with patient and rn social services inquired about the possibility of being able to sleep on the first floor which patient stated he could do if he wanted to. Transportation: Patient denied any issues with transportation. Patient's [id number] Arabella makes sure patient gets to all of his scheduled appointments as needed. DME/HHC: Grab bars in bathroom. conveyor worker discussed an option of an ERS device/services with a fall detection sensor, a rollator and a medication dispenser device to alert patient when it's time to take his medication as he reported he misses doses because he's sleeping when it's time to take his medication during the day. (Patient declined resources) Patient stated he will try to make up the dose in the evening when he can. Patient denied a need for any additional DME/HHC needs at this time. Patient stated he has a few Andrés ladies who he has to help him clean as needed. Arabella assists with meals as needed. No history of SNF. HHC history not reported. Community Resources: Patient denied a current need. Patient goals: Patient stated he has a desire to receive medical care and is agreeable to the recommendations of his doctor including being discharged to a Longterm Facility if needed as well as to return home if skilled care is not needed. Patient expressed numerous times that he's tired and wants to let his body do what it wants to do. Patient described himself as a realist and is agreeable to hospice if ever appropriate. Patient stated if he is ever on hospice, it is his wish to be in room 3 at [facility] inpatient unit where his . Patient states he has no further needs or concerns at this time. Educated arden and Arabella that CM team to follow for discharge planning needs that may arise. Disposition Plan: To be determined. Arabella Valentino, STORE DETECTIVE, WATERPROOFING MIXER
[2023-11-08] MEDS: Furosemide 20 MG/2 ML VIAL IV ×2 (18:14→21:29)
--- NOTE | 2023-11-08 19:36 | PCM.HP.STD ---
HPI - General General Date of Admission: 11/08/23 Date of Service: 11/08/23 Chief Complaint: Shortness of breath HPI Melody DIANE, is a 83 M who presents to the emergency room at [facility] with complaints of shortness of breath which occurred while he was getting a blood/platelet infusion. Patient is currently on 2 L of oxygen in the emergency room and his saturation is adequate. 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 Patient's performance status is not good and Dr. Salcido states that if he was going to continue to treat him it would be with oral medication. Labs obtained in the emergency room showed a total white blood cell count of 100, hemoglobin was 7.7, platelet count was 7000, chemistry profile was remarkable for sodium of 134, potassium of 3.4 and a BUN of 21. Total bilirubin was 1.6. Chest x-ray was obtained and showed evidence of congestive heart failure, patient's beta nitric peptide was elevated at 685. I discussed the case with Dr. Santos and Dr. Salcido-who routinely sees the patient-initially it was felt that the patient should be transferred to the [facility] according to Dr. Salcido and he requested the patient be given IV diuresis. I was informed by the emergency room physician about an hour after I saw the patient that the [facility] placed the patient on a level 2 priority and that he would not be admitted there till at least 12 hours. This necessitated admission to the hospital here. I talked with Dr. Salcido again and he recommended giving the patient a platelet transfusion and continuing diuresis. I had a brief discussion with the patient, he wishes to be a no code. According to nursing and the ER physician, patient was talking that he would like to consider palliative care or hospice-I did not have a discussion concerning this with the patient however. Patient will be admitted to PCU for acute CHF/fluid overload, he will receive platelet transfusion and labs will be monitored, pulse ox will be monitored and he is currently on low-flow nasal cannula oxygen. He will be given IV Lasix for diuresis. [facility] Medical History (Updated 11/08/23 @ 19:[address] Elliot Lozano, DO) Nonrheumatic aortic (valve) insufficiency Nonrheumatic aortic sclerosis SVT (supraventricular tachycardia) Mixed hyperlipidemia Essential hypertension Presence of stent in coronary artery (~2008) Atherosclerotic heart disease of [place] coronary artery without angina pectoris Home Medications ?Medication ?Instructions ?Recorded ?Last Taken ?Type nitroglycerin 0.4 mg sublingual 0.4 mg sublingual Q5-15M PRN chest 05/03/19 Unknown Rx tablet pain #25 tabs losartan 50 mg tablet 50 mg PO DAILY #90 tabs 05/08/19 Unknown Rx simvastatin 40 mg tablet 40 mg PO QHS #90 tabs 06/25/22 Unknown Rx metoprolol tartrate 25 mg tablet See Rx Instructions .Route 01/03/23 Unknown Rx .COMPLEX #30 tabs levothyroxine 50 mcg tablet 50 mcg PO DAILY 09/28/23 Unknown History acyclovir 400 mg tablet 400 mg PO BID 11/08/23 Unknown History allopurinol 300 mg tablet 300 mg PO DAILY 11/08/23 Unknown History clotrimazole 10 mg pia 10 mg PO 5X/DAY 11/08/23 Unknown History ivosidenib 250 mg tablet (Tibsovo) PO 11/08/23 Unknown History Allergy/AdvReac Type Severity Reaction Status Date / Time No Known Allergies Allergy Verified 11/08/23 14:05 Family History Mother Hypertension Father Hypertension Brother Hypertension Surgical History History of left heart catheterization (LHC) (~06/28/16) Presence of coronary angioplasty implant and graft (~2008) Social History Smoking Status: Former smoker alcohol intake: never substance use type: does not use caffeine: No ROS Constitutional Constitutional: Reports fatigue and weakness; Denies anorexia, change in weight, chills, fever(s) or night sweats Eyes Eyes: Denies blurry vision, change in vision, discharge from eye(s) or eye pain Cardiovascular Cardiovascular: Reports dyspnea on exertion; Denies chest pain, claudication, edema or palpitations Respiratory/Chest Respiratory/Chest: Reports dyspnea, shortness of breath at rest and shortness of breath with exertion; Denies cough or hemoptysis Gastrointestinal Gastrointestinal: Denies abdominal pain, constipation, diarrhea, hematemesis, hematochezia, melena, nausea or vomiting Genitourinary Genitourinary: Denies dysuria, hematuria, urinary frequency, urinary hesitancy, urinary incontinence or urinary urgency Musculoskeletal Musculoskeletal: Denies back pain, joint pain, joint stiffness, joint swelling, myalgias or neck pain Neurologic Neurologic: Denies abnormal gait, abnormal speech, dizziness, focal weakness, headache(s), loss of vision, numbness, other visual disturbances, paresthesias, syncope or tingling Psychiatric Psychiatric: Denies anxiety, cognitive impairment, depression, irritability, mood swings or suicidal ideation Endocrine Endocrinology: Denies change in body appearance, cold intolerance, excessive sweating, heat intolerance, polydipsia or polyuria Hematologic/Lymphatic Hematologic/Lymphatic: Denies none, anemia, easy bleeding, easy bruising or lymphadenopathy Allergic/Immunologic Allergic/Immunologic: Denies rhinitis, urticaria, eczemia or asthma Vital Signs Vital Signs Vital Signs: 11/08/23 14:02 11/08/23 14:19 11/08/23 14:22 Temperature 97 F L 97 F L Temperature Source Temporal Temporal Pulse Rate 85 85 Respiratory Rate 17 17 Respiratory Effort Short of Breath Labored Respiratory Pattern Tachypnea Blood Pressure 156/85 H 156/85 H Blood Pressure Mean 108 108 Pulse Ox 100 100 Oxygen Delivery Method Nasal Cannula Nasal Cannula Room Air Oxygen Flow Rate (L/min) 2 2 11/08/23 15:19 11/08/23 16:00 11/08/23 17:00 Temperature 98.9 F 98.5 F 97.8 F Temperature Source Temporal Temporal Temporal Pulse Rate 87 84 90 Respiratory Rate 18 26 H 22 H Respiratory Effort Respiratory Pattern Blood Pressure 144/70 H 131/78 H 138/82 H Blood Pressure Mean 94 95 100 Pulse Ox 100 97 96 Oxygen Delivery Method Nasal Cannula Nasal Cannula Nasal Cannula Oxygen Flow Rate (L/min) 2 2 2 11/08/23 17:29 11/08/23 18:00 11/08/23 19:00 Temperature 97.8 F Temperature Source Pulse Rate 90 88 81 Respiratory Rate 23 H 25 H 21 H Respiratory Effort Respiratory Pattern Blood Pressure 117/92 H 150/64 H 171/84 H Blood Pressure Mean 100 92 113 Pulse Ox 97 95 95 Oxygen Delivery Method Nasal Cannula Nasal Cannula Oxygen Flow Rate (L/min) 2 2 Physical Exam Const alert and oriented x3 Constitutional Narrative: Patient appears frail and unwell General Appearance: cooperative, well kempt and well developed Orientation / Consciousness: awake, oriented to person, oriented to place and oriented to time HEENT normocephalic, head/scalp atraumatic and moist oral mucous membranes Eyes PERRL, EOMs intact bilaterally and conjunctivae normal Neck supple, no JVD, thyroid normal and no carotid bruits General: trachea midline Resp normal respiratory effort, no retractions and no use of accessory muscles Resp Narrative: Breath sounds are distant bilaterally, patient does not appear dyspneic at rest Auscultation: Negative for rales, rhonchi or wheezes Cardio regular rate, regular rhythm, S1 normal heart sound, S2 normal heart sound, no murmurs, no rub and no gallops GI normal to inspection, nondistended, normoactive bowel sounds, soft to palpation, non-tender and non-distended Extremity no clubbing, cyanosis or edema Skin no rashes or lesions noted General Skin Exam: no breakdown Neuro oriented x3, CN's II-XII intact bilaterally, moves all extremities, no focal motor deficits and no sensory deficits noted Sensorium / Orientation: awake and alert Speech: speech normal Psych affect normal Results Lab / Micro Data 11/08/23 15:54 11/08/23 15:14 Labs: Laboratory Results - last 24 hr 11/08/23 15:14: WBC Cancelled, Corrected WBC Cancelled, RBC Cancelled, Hgb Cancelled, Hct Cancelled, MCV Cancelled, MCH Cancelled, MCHC Cancelled, RDW Std Deviation Cancelled, RDW Coeff of Mayi Cancelled, Plt Count Cancelled, MPV Cancelled, Immature Gran % (Auto) Cancelled, Neut % (Auto) Cancelled, Lymph % (Auto) Cancelled, [place] % (Auto) Cancelled, Eos % (Auto) Cancelled, Baso % (Auto) Cancelled, Absolute Neuts (auto) Cancelled, Absolute Lymphs (auto) Cancelled, Total Counted Cancelled, Neutrophils % (Manual) Cancelled, Band Neutrophils % Cancelled, Lymphocytes % (Manual) Cancelled, Monocytes % (Manual) Cancelled, Eosinophils % (Manual) Cancelled, Basophils % (Manual) Cancelled, Metamyelocytes % Cancelled, Myelocytes % Cancelled, Promyelocytes % Cancelled, Blast Cells % Cancelled, Plasma Cell % (Manual) Cancelled, Other Cells % Cancelled, Nucleated RBC % Cancelled, Nucleated RBCs/100 WBC Cancelled, Differential Comment Cancelled, Diff Path Review Cancelled, Hypersegmented Neuts Cancelled, Atypical Lymphocytes Cancelled, Reactive Lymphocytes Cancelled, Smudge Cells Cancelled, Toxic Granulation Cancelled, Toxic Vacuolation Cancelled, Dohle Bodies Cancelled, Aguila Rods Cancelled, Platelet Estimate Cancelled, Plt Morphology Comment Cancelled, RBC Morphology Cancelled 11/08/23 15:14: RBC Morphology Cancelled, Polychromasia Cancelled, Hypochromasia Cancelled, Basophilic Stippling Cancelled, Anisocytosis Cancelled, Microcytosis Cancelled, Macrocytosis Cancelled, Spherocytes Cancelled, Sickle Cells Cancelled, Target Cells Cancelled, Tear Drop Cells Cancelled, Ovalocytes Cancelled, Stomatocytes Cancelled, Velez-[place] Bodies Cancelled, Barrington Cells Cancelled, Bite Cells Cancelled, Crenated Cell Cancelled, Acanthocytes (Spur) Cancelled, Rouleaux Cancelled, Schistocytes Cancelled, Sodium 134 L, Potassium 3.4 L, Chloride 102, Carbon Dioxide 27.0, Anion Gap 5, BUN 21 H, Creatinine 0.90, Est GFR (MDRD) Af Amer 103, Est GFR (MDRD) Non-Af 86, BUN/Creatinine Ratio 23.3 H, Glucose 123 H, Lactic Acid 1.6, Calcium 8.0 L, Total Bilirubin 1.60 H, AST 34, ALT 15 L, Alkaline Phosphatase 90, Troponin I High Sens 22, B-Natriuretic Peptide 685.3 H, Total Protein 5.3 L, Albumin 1.9 L, Globulin 3.4, Albumin/Globulin Ratio 0.6 L 11/08/23 15:54: WBC 0.1 L*, RBC 2.57 L, Hgb 7.7 L, Hct 22.5 L, MCV 87.5, MCH 30.0, MCHC 34.2, RDW Std Deviation 43.8, RDW Coeff of Mayi 13.8, Plt Count 7 L*, MPV 7.5, Immature Gran % (Auto) 10.000 H, Neut % (Auto) 10.0 L, Lymph % (Auto) 70.0 H, [place] % (Auto) 10.0, Eos % (Auto) 0.0, Baso % (Auto) 0.0, Absolute Neuts (auto) 0.0 L, Absolute Lymphs (auto) 0.07 L, Differential Comment , Diff Path Review May foll Imaging Radiology Impression Chest X-Ray 11/08/23 15:30 IMPRESSION: COPD with probable superimposed congestive failure and bilateral effusions with consolidation of left lower lobe. Cannot definitively exclude coexisting pneumonia. Electronically Signed: Rubio Jeronimo MD at 16:50 EDT , Assessment & Plan Assessment/Plan (1) CHF (congestive heart failure): PLAN: Plan 1. Acute hypoxia secondary to suspected CHF-patient will be admitted to PCU, he will remain on the list to be transferred to [place] if it becomes necessary, patient will be given IV diuresis and labs will be monitored. Pulse ox will be monitored. Supplemental oxygen will be used. #2 acute CHF/volume overload-patient does not have a history of CHF according to his medical record, last echocardiogram was quite sometime ago, I have elected to obtain a limited echo to assess for LV function. It does not appear that the patient had a blood transfusion reaction. #3 acute myelogenous leukemia-poor prognosis overall, again if patient wishes to see palliative care and/or hospice, a consult can be made to them while he is in the hospital. This will need to be discussed with the patient. 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
[2023-11-08] MEDS: Clotrimazole 10 MG Troche MUCOUS MEM (21:28)
[2023-11-08] MEDS: Acyclovir 200 MG Capsule 400 MG PO (21:28)
[2023-11-08] MEDS: Metoprolol Tartrate 25 MG Tablet 12.5 MG PO (21:28)
[2023-11-09 02:42] VITALS: BP 124/59; PULSE 70; RESP 18; TEMP 37; O2SAT 97
--- NOTE | 2023-11-09 03:36 | NURSING ---
This RN went to get patients consent for transfer to [facility], patient refusing stating he wants hospice. Patient states he is aware that by refusing transport and choosing hospice there will be no treatment given unless it is to make him comfortable. Patient stated he does not want compressions, intubation, or any other treatment besides comfort care. Patient is alert and oriented to person, place, time, and situation. Patient states if something lifesaving were to be done, it would have already happened. I am ready to stop treatment and go to hospice and be comfortable. notified.
--- NOTE | 2023-11-09 04:03 | PCM.HOSP.N ---
Hospitalist Note Patient has now elected to defer transfer and instead transition potentially to hospice. Hospice consultation requested and pending.
[2023-11-09 05:10] VITALS: BP 141/65; PULSE 88; RESP 20; TEMP 37.6; O2SAT 97
[2023-11-09] MEDS: Clotrimazole 10 MG Troche MUCOUS MEM ×2 (05:11→08:29)
[2023-11-09] MEDS: levoFLOXacin 500 MG Tablet PO (05:11)
[2023-11-09] MEDS: Levothyroxine 50 MCG Tablet PO (05:11)
[2023-11-09] MEDS: Furosemide 20 MG/2 ML VIAL IV ×2 (05:11→08:30)
[2023-11-09 07:08] LABS: Absolute Lymphocyte Count 0.04 X10^3/uL (0.83-4.51); Hematocrit 19.9 % (40-54); Hemoglobin 6.8 g/dL (13.0-16.5); Lymphocyte # 0.04 X10^3/ul (0.83-4.51); Mean Corp Hgb Conc 34.2 g/dL (32-36); Mean Corpuscular Volume 87.7 fL (80-94); Mean Platelet Vol. 9.7 fl (6.2-12.0); Monocyte# 0.01 X10^3/uL; Monocyte% 12.5 % (0-10); NRBC Flagged by Analyzer 0 % (0-5); Neutrophil # 0.03 X10^3/uL (2.7-7.7); Neutrophil % 37.5 % (47-70); POSITIVE COUNT YES; POSITIVE DIFFERENTIAL YES; POSITIVE MORPHOLOGY YES; Platelet Count 6 K/mm3 (150-450); RBC Distribution Width CV 13.9 % (11.6-14.6); RBC Distribution Width SD 44.1 fl (35.1-43.9); Red Blood Count 2.27 M/mm3 (4.6-6.2); White Blood Count 0.1 K/mm3 (4.4-11.0)
[2023-11-09 07:36] LABS: Differential Indicated SCAN CRITERIA MET
[2023-11-09 07:58] LABS: Anion Gap 8 (5-15); BUN 19 mg/dL (7-18); BUN/Creat Ratio 19.9 RATIO (10-20); Calcium,Total 7.9 mg/dL (8.5-10.1); Chloride 97 mmol/L (98-107); Creatinine, Serum 0.96 mg/dL (0.70-1.30); EST Glomerular Filtration Rate 80 mL/min (>60); Est Glom Filt Rate - Afr Amer 97 mL/min (>60); Estimated Creatinine Clearance 60.84 ml/min; Glucose 148 mg/dL (74-106); Potassium 2.7 mmol/L (3.5-5.1); Sodium Level 134 mmol/L (136-145)
[2023-11-09 08:21] LABS: Platelet Estimate MKD DEC (ADEQ)
[2023-11-09 08:29] VITALS: BP 114/67; PULSE 105
[2023-11-09] MEDS: Potassium Chloride Oral Tablet 20 MEQ 60 MEQ PO (08:29)
[2023-11-09] MEDS: Potassium Chloride Oral Tablet 20 MEQ PO (08:29)
[2023-11-09] MEDS: Metoprolol Tartrate 25 MG Tablet 12.5 MG PO (08:29)
[2023-11-09] MEDS: Losartan Potassium 50 MG Tablet PO (08:29)
[2023-11-09] MEDS: Allopurinol 300 MG Tablet PO (08:29)
[2023-11-09] MEDS: Acyclovir 200 MG Capsule 400 MG PO (08:30)
[2023-11-09 09:15] VITALS: BP 114/67; PULSE 102; RESP 18; TEMP 36.6; O2SAT 96
--- NOTE | 2023-11-09 09:25 | CASEMGMT ---
SW was informed that patient would like to meet with Hospice. SW met with patient. Introduced self and role at [facility]. Patient confirmed he would like to talk with Hospice. Patient explained the doctor's tried to help him, but it did not work so he is now ready to go Hospice. Patient said he would like his son Neil to be present for the meeting. Neil is driving in from [place]. Patient called Neil and he said he will be at [facility] around noon. SW told patient SW will call Hospice with a referral and ask that the make appt for early afternoon. SW called Hospice and made a referral. SW asked that Hospice call SW to schedule meeting time and not the son Neil as he is on the road. Await return call. Natali BURR
--- NOTE | 2023-11-09 10:43 | CASEMGMT ---
Hospice will be meeting with patient and his family today at noon. Patient's son Tahir is present and his son Neil will be at [facility] around noon. SW notified RN. Another RN asked about time and then let patient and family know. Natali BURR
--- NOTE | 2023-11-09 10:53 | CASEMGMT ---
GREMÁN CM: Call received from Neil with [facility] stating pt is active with their services since 11/05/23. Updated Neil on planned hospice consultation and meeting with pt/family on this date. Neil requests to be updated on final discharge disposition determination either via [facility] or phone [phone]. Ar Arzate RN ACM
--- NOTE | 2023-11-09 12:01 | CASEMGMT ---
Hospice is here to meet with patient and his family. Natali Harley MOVIE SHOT CAMERA OPERATOR LENO
--- NOTE | 2023-11-09 13:14 | PCM.DC.SUM ---
Providers Date of Admission: 11/08/23 Date of Discharge: 11/09/23 Primary Care Physician: Dr. Anuradha Chavez, Consultations 11/09/23 04:01 Consult: Hospice / Palliative Care Routine Consulting Provider: [facility] Reason for Consult: Patient requesting hospice consultation EMERGENT Consult: No MD Notified: Yes Date Notified: 11/09/23 Time Notified: 09:07 Method of Notification: Answering Service Reason For Visit: PANCYTOPENIA, CHF Diagnosis Discharge Diagnosis (1) CHF (congestive heart failure): Status: Acute Code(s): I50.9 - Heart failure, unspecified (2) Acute hypoxemic respiratory failure: Status: Acute Code(s): J96.01 - Acute respiratory failure with hypoxia (3) Presence of stent in coronary artery: Status: Chronic Code(s): Z95.5 - Presence of coronary angioplasty implant and graft (4) Symptomatic anemia: Status: Acute Code(s): D64.9 - Anemia, unspecified (5) Thrombocytopenia: Status: Acute Code(s): D69.6 - Thrombocytopenia, unspecified (6) Acute myelogenous leukemia: Status: Inactive Code(s): C92.00 - Acute myeloblastic leukemia, not having achieved remission Medications at Discharge Home Medications nitroglycerin 0.4 mg sublingual tablet 0.4 mg sublingual Q5-15M PRN chest pain #25 tabs 05/03/19 losartan 50 mg tablet 50 mg PO DAILY #90 tabs 05/08/19 simvastatin 40 mg tablet 40 mg PO QHS #90 tabs 06/25/22 metoprolol tartrate 25 mg tablet See Rx Instructions .Route .COMPLEX #30 tabs 01/03/23 levothyroxine 50 mcg tablet 50 mcg PO DAILY 09/28/23 acyclovir 400 mg tablet 400 mg PO BID 11/08/23 allopurinol 300 mg tablet 300 mg PO DAILY 11/08/23 clotrimazole 10 mg pia 10 mg PO 5X/DAY 11/08/23 ivosidenib 250 mg tablet (Tibsovo) PO 11/08/23 Hospital Course Summary of Care Provided Minutes Spent on Discharge: 25 Hospital Course: 83-year-old male with history of AML and CAD presented to [facility] ED 11/09/2023 with shortness of breath that occurred while getting up blood and platelet transfusion and was on 2 L of oxygen emergency room. He was found to have a white count of 0.1 and platelets of 7 and given his AML and complicated history it was recommended he be transferred to [facility] for further management. When bed became available patient refused and opted for hospice care. Patient transferred to inpatient hospice Physical Exam Narrative Deferred due to end-of-life Weight / BMI Weight Weight: 82.1 kg Body Mass Index (BMI) 28.3 ABG / Lab / Microbiology Data 11/09/23 06:51 11/09/23 06:51 Laboratory: Laboratory Results - last 24 hr 11/07/23 13:39: Blood Type A POSITIVE, Antibody Screen NEGATIVE, Crossmatch See Detail 11/08/23 15:14: WBC Cancelled, Corrected WBC Cancelled, RBC Cancelled, Hgb Cancelled, Hct Cancelled, MCV Cancelled, MCH Cancelled, MCHC Cancelled, RDW Std Deviation Cancelled, RDW Coeff of Mayi Cancelled, Plt Count Cancelled, MPV Cancelled, Immature Gran % (Auto) Cancelled, Neut % (Auto) Cancelled, Lymph % (Auto) Cancelled, [place] % (Auto) Cancelled, Eos % (Auto) Cancelled, Baso % (Auto) Cancelled, Absolute Neuts (auto) Cancelled, Absolute Lymphs (auto) Cancelled, Total Counted Cancelled, Neutrophils % (Manual) Cancelled, Band Neutrophils % Cancelled, Lymphocytes % (Manual) Cancelled, Monocytes % (Manual) Cancelled, Eosinophils % (Manual) Cancelled, Basophils % (Manual) Cancelled, Metamyelocytes % Cancelled, Myelocytes % Cancelled, Promyelocytes % Cancelled, Blast Cells % Cancelled, Plasma Cell % (Manual) Cancelled, Other Cells % Cancelled, Nucleated RBC % Cancelled, Nucleated RBCs/100 WBC Cancelled, Differential Comment Cancelled, Diff Path Review Cancelled, Hypersegmented Neuts Cancelled, Atypical Lymphocytes Cancelled, Reactive Lymphocytes Cancelled, Smudge Cells Cancelled, Toxic Granulation Cancelled, Toxic Vacuolation Cancelled, Dohle Bodies Cancelled, Aguila Rods Cancelled, Platelet Estimate Cancelled, Plt Morphology Comment Cancelled, RBC Morphology Cancelled 11/08/23 15:14: RBC Morphology Cancelled, Polychromasia Cancelled, Hypochromasia Cancelled, Basophilic Stippling Cancelled, Anisocytosis Cancelled, Microcytosis Cancelled, Macrocytosis Cancelled, Spherocytes Cancelled, Sickle Cells Cancelled, Target Cells Cancelled, Tear Drop Cells Cancelled, Ovalocytes Cancelled, Stomatocytes Cancelled, Velez-[place] Bodies Cancelled, Barrington Cells Cancelled, Bite Cells Cancelled, Crenated Cell Cancelled, Acanthocytes (Spur) Cancelled, Rouleaux Cancelled, Schistocytes Cancelled, Sodium 134 L, Potassium 3.4 L, Chloride 102, Carbon Dioxide 27.0, Anion Gap 5, BUN 21 H, Creatinine 0.90, Est GFR (MDRD) Af Amer 103, Est GFR (MDRD) Non-Af 86, BUN/Creatinine Ratio 23.3 H, Glucose 123 H, Lactic Acid 1.6, Calcium 8.0 L, Total Bilirubin 1.60 H, AST 34, ALT 15 L, Alkaline Phosphatase 90, Troponin I High Sens 22, B-Natriuretic Peptide 685.3 H, Total Protein 5.3 L, Albumin 1.9 L, Globulin 3.4, Albumin/Globulin Ratio 0.6 L 11/08/23 15:54: WBC 0.1 L*, RBC 2.57 L, Hgb 7.7 L, Hct 22.5 L, MCV 87.5, MCH 30.0, MCHC 34.2, RDW Std Deviation 43.8, RDW Coeff of Mayi 13.8, Plt Count 7 L*, MPV 7.5, Immature Gran % (Auto) 10.000 H, Neut % (Auto) 10.0 L, Lymph % (Auto) 70.0 H, [place] % (Auto) 10.0, Eos % (Auto) 0.0, Baso % (Auto) 0.0, Absolute Neuts (auto) 0.0 L, Absolute Lymphs (auto) 0.07 L, Differential Comment , Diff Path Review September11/09/23 06:51: WBC 0.1 L*, RBC 2.27 L, Hgb 6.8 L, Hct 19.9 L, MCV 87.7, MCH 30.0, MCHC 34.2, RDW Std Deviation 44.1 H, RDW Coeff of Mayi 13.9, Plt Count 6 L*, MPV 9.7, Immature Gran % (Auto) 0.000, Neut % (Auto) 37.5 L, Lymph % (Auto) 50.0 H, [place] % (Auto) 12.5 H, Eos % (Auto) 0.0, Baso % (Auto) 0.0, Absolute Neuts (auto) 0.0 L, Absolute Lymphs (auto) 0.04 L, Nucleated RBC % 0, Diff Path Review May foll, Platelet Estimate MKD DEC, Sodium 134 L, Potassium 2.7 L*, Chloride 97 L, Carbon Dioxide 29.0, Anion Gap 8, BUN 19 H, Creatinine 0.96, Estim Creat Clear Calc 60.84, Est GFR (MDRD) Af Amer 97, Est GFR (MDRD) Non-Af 80, BUN/Creatinine Ratio 19.9, Glucose 148 H, Calcium 7.9 L Radiography Diagnostic Testing: Radiology Impression Chest X-Ray 11/08/23 15:30 IMPRESSION: COPD with probable superimposed congestive failure and bilateral effusions with consolidation of left lower lobe. Cannot definitively exclude coexisting pneumonia. Electronically Signed: Rubio Jeronimo MD at 16:50 EDT Reading Location ID and State: [address] [place] [address] Tel , Service support , D/C Instructions Discharge Diet: No restrictions Meaningful Use Info Meaningful Use Meaningful Use Diagnoses (Choose all that apply): None applicable Ischemic Stroke Statin Dosing Therapy Reference: STATIN DOSE THERAPY REFERENCE: * Patients > 75 years receive moderate or high dose statin therapy. * Patients 75 years or YOUNGER should receive HIGH intensity statin dose unless contraindicated. You will be required to document reason for non-treatment if statin daily dose does not meet guidelines. HIGH DOSE STATIN THERAPY DAILY Atorvastatin > than or = to 40 mg Rosuvastatin > than or = to 20 mg Amlodipine + Atorvastatin > than or = to 2.5/40 mg Ezetimibe + Simvastatin 10/80 mg Simvastatin 80mg Discharge Plan Admission Admit Date/Time: 11/08/23 18:40 Primary Reason for Your Visit: Shortness of breath Attending Provider: Kendra Santamaria Primary Care Provider: Anuradha Chavez Consulting Providers: Elliot Lozano; Aden Delgadillo; Jennifer Sainz; Genna Moreira; Donna Guallpa DISPENSING AUDIOLOGIST Instructions Patient Instructions: Hospice Care Dyspnea Discharge Orders/Prescriptions Prescriptions: No Action nitroglycerin 0.4 mg tablet, sublingual 0.4 mg SUBLINGUAL Q5-15M PRN (Reason: chest pain) Qty: 25 1RF levothyroxine 50 mcg tablet 50 mcg PO DAILY clotrimazole 10 mg pia 10 mg PO 5X/DAY acyclovir 400 mg tablet 400 mg PO BID allopurinol 300 mg tablet 300 mg PO DAILY Tibsovo 250 mg tablet PO losartan 50 mg tablet 50 mg PO DAILY Qty: 90 3RF simvastatin 40 mg tablet 40 mg PO QHS Qty: 90 3RF metoprolol tartrate 25 mg tablet See Rx Instructions .ROUTE .COMPLEX Qty: 30 0RF Dose Instruction: Take 1/2 (one-half) tablet by mouth twice daily Rx Instructions: Take 1/2 (one-half) tablet by mouth twice daily Referrals / Follow Up: Anuradha Chavez DO [Primary Care Provider] - Disposition Disposition (needs filled in before D/C Order can be placed): Hospice in Medical Facility Charges/Coding Visit Charges Inpatient E&M: 53380 Disch Hosp
--- NOTE | 2023-11-09 14:56 | CASEMGMT ---
Patient will be discharged to the inpatient Hospice unit today. 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 SW notified physician. Natali BURR
[2023-11-10 10:24] LABS: Pathologist Review Reviewed
[2023-11-10 14:21] LABS: Pathologist Review Reviewed
== END 2023-11-09 15:56 | disposition hospice, inpatient (51) | DRG 292 ==
LOC: ED 17:16 → PCU 19:01
PROVIDERS: Admitting Provider Internal Medicine; Emergency Provider Emergency Medicine; PCP Internal Medicine; Visit Provider Internal Medicine
DX: I11.0 Hypertensive heart disease with heart failure (principal); C92.00 Acute myeloblastic leukemia, not having achieved remission; D61.818 Other pancytopenia; Z94.81 Bone marrow transplant status; B37.0 Candidal stomatitis; I50.9 Heart failure, unspecified; I25.10 Atherosclerotic heart disease of native coronary artery without angina pectoris; E78.2 Mixed hyperlipidemia; Z87.891 Personal history of nicotine dependence; Z95.5 Presence of coronary angioplasty implant and graft
CPT/HCPCS: 36415; 36430; 71046; 80048; 80053; 83605; 83880; 84484; 85025; 86644; 86850; 86900; 86901; 86920; 86922; 86965; 93005; 99284; J7040; P9035; P9040; A4216; J1940